=== PATIENT | male | born 1995 | race Caucasian/White ===

== ENCOUNTER 2021-06-09 19:25 | Emergency (ER) | payer MEDICAID ==
[~2021-06-09] VITALS: Ht 172.7 cm; Wt 79.2 kg
[2021-06-10 07:45] LABS: BASOPHILS # (AUTO) 0.1 X10'3 (0-0.2); BASOPHILS % (AUTO) 0.7 % (0-1); EOSINOPHILS # (AUTO) 0.2 X10'3 (0-0.9); HEMATOCRIT 45.2 % (42.0-52.0); HEMOGLOBIN 14.9 g/dl (14.0-17.9); LYMPHOCYTES # (AUTO) 2.9 X10'3 (1.1-4.8); LYMPHOCYTES % (AUTO) 24.6 % (21-51); MEAN CORPUSCULAR HEMOGLOBIN 29.4 PG (27.0-31.0); MEAN CORPUSCULAR VOLUME 88.9 FL (78-98); MEAN PLATELET VOLUME 7.9 FL (7.4-10.4); MONOCYTES # (AUTO) 1.6 X10'3 (0-0.9); MONOCYTES % (AUTO) 14.1 % (2-12); NEUTROPHILS # (AUTO) 6.8 X10'3 (1.8-7.7); NEUTROPHILS % (AUTO) 58.6 % (42-75); PLATELET COUNT 296 X10'3 (140-440); RED BLOOD COUNT 5.09 X10'6 (4.70-6.10); RED CELL DISTRIBUTION WIDTH 13.3 % (11.5-14.5); WHITE BLOOD COUNT 11.6 X10'3 (4.5-11.0)
[2021-06-10 07:58] LABS: ALANINE AMINOTRANSFERASE 41 U/L (12-78); ALBUMIN 3.7 G/DL (3.4-5.0); ALKALINE PHOSPHATASE 56 IU/L (46-116); ANION GAP 11 (8-16); ASPARTATE AMINO TRANSFERASE 22 U/L (10-37); BILIRUBIN,TOTAL 0.5 MG/DL (0.1-1.0); BLOOD UREA NITROGEN 19 MG/DL (7-18); BUN/CREATININE RATIO 20.2 (5.4-32.0); CALCIUM 8.7 MG/DL (8.5-10.1); CHLORIDE 101 MMOL/L (99-107); CREATININE 0.94 MG/DL (0.60-1.10); ETHANOL < 0.010 GM/DL (0.0-0.010); GLUCOSE 89 MG/DL (70-104); POTASSIUM 4.3 MMOL/L (3.5-5.1); SODIUM 141 MMOL/L (135-145); TOTAL CARBON DIOXIDE 29.4 MMOL/L (24-32); TOTAL PROTEIN 7.3 G/DL (6.4-8.2); eGFR > 90 ML/MIN
[2021-06-10 10:03] LABS: URINE AMPHETAMINE SCREEN NEGATIVE (Neg); URINE BARBITUATE SCREEN NEGATIVE (Neg); URINE BENZODIAZEPINES SCREEN NEGATIVE (Neg); URINE CANNABINOID SCREEN POSITIVE (Neg); URINE COCAINE SCREEN NEGATIVE (Neg); URINE METHADONE SCREEN NEGATIVE (Neg); URINE OPIATE SCREEN NEGATIVE (Neg); URINE PHENCYCLIDINE SCREEN NEGATIVE (Neg)
--- NOTE | 2021-06-10 12:15 | NUR ---
RESTING COMFORTABLY, NO NEEDS AT THIS TIME.
--- NOTE | 2021-06-10 13:30 | NUR ---
ATE LUNCH AND IS RESTING ON HIS BACK,
--- NOTE | 2021-06-10 14:30 | NUR ---
APPEARS TO BE SLEEPING ON RIGHT SIDE
--- NOTE | 2021-06-10 15:30 | NUR ---
SLEEPING ON LEFT SIDE, APPEARS TO HAVE NO DISTRESS
--- NOTE | 2021-06-10 16:30 | NUR ---
RESTING COMFORTABLY, NO NEEDS AT THIS TIME
--- NOTE | 2021-06-10 16:30 | NUR ---
Eboni rendon in [facility] - 06/10/21 at 2334 by HLASTUART pt eating nahum
--- NOTE | 2021-06-10 17:30 | NUR ---
RESTING ON BACK, NO APPARENT DISTRESS
--- NOTE | 2021-06-10 19:30 | NUR ---
RESTING COMFORTABLY ON BACK
[2021-06-10] MEDS ORDERED: BUPR1FIL3 SL (19:38)
--- NOTE | 2021-06-10 20:30 | NUR ---
ASKING ABOUT NICOTINE GUM, WILL ASK PHARMACY IF WE HAVE IT.
[2021-06-10] MEDS ORDERED: buprenorphine/naloxone 8MG-2MG SUBlingual film SL SCH (21:00)
[2021-06-10] MEDS ORDERED: NICOTINE POLACRILEX 2 MG LOZENGE BC PRN (21:10)
--- NOTE | 2021-06-10 21:30 | NUR ---
RESTING ON LEFT SIDE
--- NOTE | 2021-06-10 22:30 | NUR ---
SLEEPING ON LEFT SIDE
--- NOTE | 2021-06-10 23:33 | NUR ---
SLEEPING ON LEFT SIDE
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
--- NOTE | 2021-06-11 05:55 | NUR ---
Pt remains asleep, lying on his back, rr 14 and unlabored with blankets covering to his shouders. Staff within view of Pt AAT.
[2021-06-11 06:00] VITALS: BP 109/71
== END 2021-06-11 07:06 ==
LOC: ER 19:27
DX: R45.851 Suicidal ideations (principal); Z88.1 Allergy status to other antibiotic agents; Z79.899 Other long term (current) drug therapy
CPT/HCPCS: 36415; 80053; 80305; 80320; 85025; 99285

== ENCOUNTER 2021-06-10 17:08 | Inpatient (IN) | payer MEDICAID ==
[~2021-06-10] VITALS: Ht 172.7 cm; Wt 80.5 kg
[2021-06-10] MEDS ORDERED: BUPR1FIL3 SL (19:38)
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
[2021-06-11 07:12] VITALS: BP 117/75
[2021-06-11] MEDS ORDERED: loperamide 2mg capsule PO PRN (07:35)
[2021-06-11] MEDS ORDERED: magnesium hydroxide 30ml (MOM) UD suspension PO PRN (07:35)
[2021-06-11] MEDS ORDERED: mag hydrox/Alum hydrox/simeth 30ml oral suspension PO PRN (07:35)
[2021-06-11] MEDS ORDERED: acetaminophen 325mg tablet PO PRN ×2 (07:35)
[2021-06-11] MEDS ORDERED: pneumococcal 23-VAL P-sac vacc 25 mcg/0.5ml vial IMVAC ONE (09:25)
[2021-06-11 09:30] VITALS: BP 113/60
[2021-06-11] MEDS: nicotine 21mg patch - 24 hr TD SCH (10:22)
--- NOTE | 2021-06-11 15:43 | NUR ---
Pt attend [facility] today. Ariane Cuba, CITY SECRETARY
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
[2021-06-11 19:36] VITALS: BP 136/73
[2021-06-11] MEDS: traZODone 50mg tablet PO PRN ×2 (20:13→21:29)
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
[2021-06-12 08:00] VITALS: BP 103/61
[2021-06-12 08:11] LABS: HEMOGLOBIN A1C 5.5 % (4.5-6.2)
[2021-06-12] MEDS: ESCITALOPRAM OXALATE 5 MG TABLET PO SCH (08:15)
[2021-06-12] MEDS: nicotine 21mg patch - 24 hr TD SCH (08:15)
[2021-06-12 08:16] LABS: CHOL/HDL RATIO 3.4 (0.00-4.99); CHOLESTEROL 133 MG/DL (0-200); HDL CHOLESTEROL 39 MG/DL (35-60); LDL CHOLESTEROL 82 MG/DL (50-100); TRIGLYCERIDES 136 MG/DL (20-135)
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
[2021-06-12] MEDS: LORazepam 1 MG tablet PO PRN (18:45)
[2021-06-12 19:25] VITALS: BP 124/68
[2021-06-12] MEDS: traZODone 50mg tablet PO SCH (20:31)
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
[2021-06-13 08:00] VITALS: BP 114/50
[2021-06-13] MEDS: nicotine 21mg patch - 24 hr TD SCH (08:56)
[2021-06-13] MEDS: ESCITALOPRAM OXALATE 5 MG TABLET PO SCH (08:57)
[2021-06-13] MEDS: LORazepam 1 MG tablet PO PRN ×2 (15:44→21:44)
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
[2021-06-13] MEDS: NICOTINE POLACRILEX 2 MG LOZENGE BC PRN ×2 (17:29→20:08)
[2021-06-13 19:31] VITALS: BP 123/68
[2021-06-13] MEDS: traZODone 50mg tablet PO SCH (20:09)
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
[2021-06-14 08:00] VITALS: BP 116/50
[2021-06-14] MEDS: nicotine 21mg patch - 24 hr TD SCH (08:49)
[2021-06-14] MEDS: ESCITALOPRAM OXALATE 5 MG TABLET PO SCH (08:50)
--- NOTE | 2021-06-14 14:52 | NUR ---
Pt. attended group today. Todays group was about the difference between Growth Mindset vs. Fixed Mindset. We learned about the differences and then discussed what aspect of developing a growth mindset they wanted to work on. Pt. was outgoing and friendly to his peers in the group. He engaged in group discussion consistently and showed insight into his own mental illness. He was able to share what he needs to work on to work toward a growth mindset. He wants to focus on looking at difficult situations as growth opportunities. He was alert and oriented X 4. His thought content and thought process was WNL. Ariane Cuba LCSW
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
[2021-06-14] MEDS ORDERED: NICO-687 TD (20:24)
[2021-06-14] MEDS ORDERED: NICO-668 BC (20:24)
[2021-06-14] MEDS ORDERED: ESCI20TA39 PO (20:24)
[2021-06-14 20:41] VITALS: BP 117/69
[2021-06-14] MEDS: traZODone 50mg tablet PO SCH (21:00)
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
--- NOTE | 2021-06-15 03:56 | NUR ---
Discharge Note: Pt discharged at this time, pt given all belongings, prescriptions given to patient, Yellow cab called to take patient to [place] bus station, pt has ticket and picture and wrist band for his ID.
== END 2021-06-15 03:55 | disposition home or self-care (01) | DRG 754 ==
LOC: ADULT MH 17:08
PROVIDERS: ADMIT Psychiatry & Neurology Psychiatry; ATTEND Internal Medicine
PROC: 3E0234Z Introduction of Serum, Toxoid and Vaccine into Muscle, Percutaneous Approach (ICD-10-PCS; principal; 2021-06-11)
DX: F32.9 Major depressive disorder, single episode, unspecified (principal); R45.851 Suicidal ideations; Z88.0 Allergy status to penicillin; F11.10 Opioid abuse, uncomplicated; F41.9 Anxiety disorder, unspecified; Z56.0 Unemployment, unspecified; F17.210 Nicotine dependence, cigarettes, uncomplicated; Z23 Encounter for immunization
CPT/HCPCS: 36415; 80061; 83036; 87081; 90732